=== PATIENT | male | born 1970 | race Caucasian/White ===

== ENCOUNTER 2018-03-07 09:12 | Day surgery (SDC) | payer OTHER ==
[2018-03-07] MEDS ORDERED: LR 1,000 ML IV ONE (09:33)
[2018-03-07] MEDS ORDERED: BUPIVACAINE 0.5% 30 ML SDV ONE (09:37)
--- NOTE | 2018-03-07 10:31 | PDGENHP ---
History & Physical Chief Complaint: Right hip mass History of Present Illness: H/o mass over right hip. No pain, no drainage/ redness Relevant Physical Exam: 8 cm right hip mass, mobile, NTTP. No erythema, fluctuance Cardiorespiratory Assessment: CTA B. RRR. Risks/benefits reviewed, questions answered. Plan excision right hip mass.
[2018-03-07] MEDS ORDERED: LIDOCAINE 1% 300 MG/30 ML SDV ONE (10:34)
[2018-03-07] MEDS ORDERED: MIDAZOLAM 2 MG/2 ML VIAL IVP ONE (10:40)
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
[2018-03-07] MEDS ORDERED: PROPOFOL/EMULSION 500 MG/50 ML BOTTLE IV ONE (10:50)
[2018-03-07] MEDS ORDERED: fentaNYL 100 MCG/2 ML INJ ONE (10:50)
[2018-03-07] MEDS ORDERED: PROPOFOL 200 MG/20 ML VIAL ONE (11:25)
[2018-03-07] MEDS ORDERED: fentaNYL 100 MCG/2 ML INJ IVP PRN (11:50)
[2018-03-07] MEDS ORDERED: ONDANSETRON 4 MG/2 ML VIAL IVP PRN (11:50)
[2018-03-07] MEDS ORDERED: NALOXONE HCL 0.4 MG/ML INJ IVP PRN (11:50)
--- NOTE | 2018-03-07 11:51 | POSTANESTH ---
Post Anesthetic Evaluation Cardiovascular Status: Normal, Stable Respiratory Status: Normal, Stable Level of Consciousness/Mental Status: Can Participate in Eval Pain Control: Adequate, Prn Tx Ordered Nausea/Vomiting Control: Adequate, Prn Tx Ordered Complications Possibly Related to Anesthesia: None Noted
--- NOTE | 2018-03-07 11:56 | POSTOPPROG ---
Post Op Note Date of Operation: 03/07/18 Surgeon: Christopher Leon Anesthesiologist: Dr. Hernandez Anesthesia: IV Sedation Pre-op Diagnosis: Right hip mass Post-op Diagnosis: same Procedure: Excision Inf/Abcess present in the surg proc area at time of surgery?: No EBL: Minimal
[2018-03-07 12:50] VITALS: BP 104/69
--- NOTE | 2018-03-07 15:42 | GOP ---
[f rep st] OPERATIVE REPORT DATE OF OPERATION: 03/07/2018 SURGEON: Orlando Leon MD ANESTHESIA: Monitored anesthetic care. ANESTHESIOLOGIST: Serina Hernandez MD PREOPERATIVE DIAGNOSIS: Right hip mass. POSTOPERATIVE DIAGNOSIS: Right hip mass. PROCEDURE PERFORMED: Excision of right hip mass. FINDINGS: The patient had a large lipomatous appearing mass. No other lesions were identified. ESTIMATED BLOOD LOSS: 20 cc INDICATIONS: This is a 47-year-old male with a history of right hip mass. Risks and benefits of the procedure were discussed with the patient and questions were answered. He wishes to proceed. DESCRIPTION OF PROCEDURE: With the patient in the supine position, after induction of adequate IV se dation, the patient was prepped and draped in the standard surgical fashion. Lidocaine 1% and 0.5% M arcaine was injected in the right hip area for local anesthesia. An ellipse of skin was incised usin g a #15 blade. The lipomatous mass was then excised en bloc with this using blunt dissection and cau bright. It appeared to be a lobulated lipomatous mass and the medial aspect was marked with a suture. It was sent for permanent section. The area was thoroughly irrigated and aspirated. Hemostasis was achieved with cautery. The subcutan eous tissue was approximated in layers using 2-0 and 3-0 Vicryl in an interrupted fashion. Skin was closed with 4-0 Monocryl and a subcuticular stitch. The wound was sterilely dressed and the patient was taken to the PACU in stable condition. COMPLICATIONS: None. DRAINS: None. /[id number]/MODL
== END 2018-03-07 13:05 | disposition home or self-care (01) ==
LOC: FSGY 09:12
PROVIDERS: ATTEND Surgery
PROC: 0JBC0ZZ Excision of Pelvic Region Subcutaneous Tissue and Fascia, Open Approach (ICD-10-PCS; principal; 2018-03-07 10:30)
DX: D17.23 Benign lipomatous neoplasm of skin and subcutaneous tissue of right leg (principal)
CPT/HCPCS: J2250; J2704; J3010